=== PATIENT | male | born 1975 | race Caucasian/White ===

== ENCOUNTER 2017-01-03 23:22 | Observation (INO) | payer OTHER ==
[~2017-01-03] VITALS: Ht 188 cm; Wt 116.0 kg
[2017-01-03 23:24] VITALS: BP 144/88; PULSE 103; RESP 18; TEMP 99.5; O2SAT 95
[2017-01-04] MEDS ORDERED: SODIUM CHLORIDE 0.9% FLUSH 10 ML FLUSH IVF PRN
[2017-01-04] MEDS ORDERED: ASPIRIN 81 MG CHEW TAB PO ONE
[2017-01-04] MEDS ORDERED: SODIUM CHLORID 0.9% 500 ML INJ 500 ML IV ONE
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
[2017-01-04 00:24] LABS: AUTOMATED NEUTROPHIL # 6.5 TH/MM3 (1.8-7.7); BASOPHIL # 0.1 TH/MM3 (0-0.2); BASOPHIL % 0.6 % (0.0-2.0); EOSINOPHIL # 0.3 TH/MM3 (0-0.4); EOSINOPHIL % 2.2 % (0.0-4.0); HEMATOCRIT 41.1 % (39.0-51.0); HEMO FLAGS DIFF FINAL; LYMPH % 31.6 % (9.0-44.0); LYMPHOCYTE # 3.7 TH/MM3 (1.0-4.8); MEAN CELL VOLUME 95.9 FL (80.0-100.0); MEAN CORPUSCULAR HEMOGLOBIN 33.9 PG (27.0-34.0); MEAN CORPUSCULAR HGB CONC 35.4 % (32.0-36.0); MONO % 9.9 % (0.0-8.0); NEUT % 55.7 % (16.0-70.0); PLATELET COUNT 274 TH/MM3 (150-450); RED BLOOD COUNT 4.28 MIL/MM3 (4.50-5.90); RED CELL DISTRIBUTION WIDTH 12.7 % (11.6-17.2); WHITE BLOOD COUNT 11.8 TH/MM3 (4.0-11.0)
--- NOTE | 2017-01-04 00:26 | RADRPT ---
EXAM DATE/TIME: 01/04/2017 00:10 [facility] COMPARISON: No previous studies available for comparison. INDICATIONS : Chest pain. Patient states pain started in center of chest and radiated up the right side of his neck . MEDICAL HISTORY : None. SURGICAL HISTORY : None. ENCOUNTER: Initial ACUITY: 1 day PAIN SCORE: 10/10 LOCATION: Bilateral chest FINDINGS: Portable AP view of the chest demonstrates a normal-sized cardiac silhouette. No effusion, consolidat ion, or pneumothorax is visualized. The bones and soft tissues demonstrate no acute abnormality. EKG lines overlie the patient. CONCLUSION: No acute cardiopulmonary abnormality is identified. Hector Smith MD on January 04, 2017 at 0:24 Board Certified Radiologist. This report was verified electronically.
[2017-01-04 00:35] LABS: APTT (PATIENT) 26.8 SEC (24.3-30.1); PROTHROMBIN TIME - PATIENT 10.8 SEC (9.8-11.6)
[2017-01-04 00:47] LABS: ALT (GPT) 36 U/L (12-78); ANION GAP 9 MEQ/L (5-15); AST (GOT) 20 U/L (15-37); BICARBONATE 25.9 MEQ/L (21.0-32.0); BLOOD UREA NITROGEN 8 MG/DL (7-18); CHLORIDE 105 MEQ/L (98-107); GLOMERULAR FILTRATION RATE 81 ML/MIN (>89); POTASSIUM 3.3 MEQ/L (3.5-5.1); SODIUM (NA) 140 MEQ/L (136-145)
[2017-01-04 00:51] LABS: ALKALINE PHOSPHATASE 79 U/L (45-117); CREATINE KINASE 266 U/L (39-308); TOTAL BILIRUBIN ADULT 0.6 MG/DL (0.2-1.0)
[2017-01-04 00:53] VITALS: BP 144/100; PULSE 92; RESP 17; O2SAT 95
[2017-01-04 00:54] VITALS: BP_SYST 130; BP_SYST 144; BP_DIAS 100; BP_DIAS 81
[2017-01-04 01:03] LABS: CKMB 1.7 NG/ML (0.5-3.6)
[2017-01-04] MEDS ORDERED: SODIUM CHLORIDE 0.9% FLUSH 10 ML FLUSH IV FLUSH PRN (01:30)
[2017-01-04] MEDS ORDERED: NITROGLYCERIN 0.4 MG SL 25 TABS/BTL SL PRN (01:30)
[2017-01-04] MEDS ORDERED: POTASSIUM CHLORIDE 20 MEQ CONTROLLED RELEASE TAB PO ONE (01:30)
[2017-01-04] MEDS ORDERED: ACETAMINOPHEN/HYDROcodone 325 MG/7.5 MG TAB PO PRN (01:30)
[2017-01-04] MEDS ORDERED: ONDANSETRON HCL 4 MG/2 ML VIAL IV PRN (01:30)
[2017-01-04] MEDS ORDERED: ACETAMINOPHEN 500 MG CPLT PO PRN (01:30)
[2017-01-04] MEDS ORDERED: MORPHINE SULFATE 4 MG/ML INJ IV PRN (01:30)
[2017-01-04 03:00] VITALS: PULSE 82
[2017-01-04 03:20] VITALS: BP 123/64; PULSE 86; RESP 19; TEMP 96.2; O2SAT 96
[2017-01-04 03:34] LABS: CREATINE KINASE 231 U/L (39-308)
[2017-01-04 03:47] LABS: CKMB 1.5 NG/ML (0.5-3.6)
[2017-01-04 05:39] LABS: CREATINE KINASE 243 U/L (39-308)
[2017-01-04] MEDS ORDERED: SODIUM CHLORIDE 0.9% FLUSH 10 ML FLUSH IV FLUSH SCH (09:00)
[2017-01-04] MEDS ORDERED: ASPIRIN 325 MG TAB PO SCH (09:00)
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
--- NOTE | 2017-01-04 09:34 | TR ---
Date Performed: 01/04/2017 Time Performed: 08:57:00 DOCTOR: Yazmin Cruz DRUG LIST: CLINICAL HISTORY: REASON FOR TEST: REASON FOR ENDING: OBSERVATION: CONCLUSION: JIMI PROTOCOL. NO CP. TEST STOPPED AFTER REACHING GOAL HR SECONDARY TO SOB AND LEG FATIGUE. OCCASIONAL PVCS.Maximum HO=682 % Max HR Achieved=88.0% Maximum WM=303/78 Total Exercise Time =5:01 COMMENTS:
[2017-01-04] MEDS ORDERED: REGADENOSON INJ 0.4 MG/5 ML SYR ONE (11:09)
--- NOTE | 2017-01-04 12:12 | RADRPT ---
EXAM DATE/TIME: 01/04/2017 10:37 [facility] COMPARISON: No previous studies available for comparison. INDICATIONS : Midsternal chest pain radiating to the right neck. Angina. DOSE: 35.0 mCi Tc99m Myoview at stress. 11.0 mCi Tc99m Myoview at rest. 0.4 mg Lexiscan STRESS SYMPTOMS: Shortness of breath with dizziness. EJECTION FRACTION: 56% MEDICAL HISTORY : Seizures. Smoker. SURGICAL HISTORY : Cholecystectomy. Right knee surgery. ENCOUNTER: Initial ACUITY: 1 day PAIN SCALE: 10/10 LOCATION: Midsternal chest TECHNIQUE: The patient underwent pharmacologic stress with infusion of prescribed dose. Continuous ECG tracing was monitored during stress. Gated SPECT imaging was performed after stress and conventional SPECT i maging was performed at rest. The examination was performed on a SPECT/CT scanner, both attenuation and non-corrected datasets were reviewed. FINDINGS: DISTRIBUTION: The maximum perfused segment at stress is equally distributed between the septal and lateral jerez. T here appears to be severe contamination along the inferior wall due to regional bowel activity on the stress sequence. PERFUSION STUDY: The pattern of perfusion at stress is within normal limits. GATED STUDY: There is intact wall motion and thickening without hypokinetic or dyskinetic segments. CONCLUSION: 1. No scintigraphic findings of infarct or ischemia. 2. Adequate wall motion throughout with estimated ejection fraction of 56%. RISK CATEGORY: Low (<1% Annual Mortality Rate) Ankush Coleman MD on January 04, 2017 at 12:05 Board Certified Radiologist. This report was verified electronically.
--- NOTE | 2017-01-04 12:20 | HHI.DCPOC ---
Discharge Care Plan Diagnosis: (1) Chest pain (2) Tobacco abuse Goals to Promote Your Health * To prevent worsening of your condition and complications * To maintain your health at the optimal level Directions to Meet Your Goals Take your medications as prescribed Follow your dietary instruction Follow activity as directed Keep your appointments as scheduled Take your immunizations and boosters as scheduled If your symptoms worsen call your PCP, if no PCP go to Urgent Care Center or Emergency Room Smoking is Dangerous to Your Health. Avoid second hand smoke Call the 24-hour hour crisis hotline for domestic abuse at Sharan Flood Jan 04, 2017 12:20
[2017-01-04 12:35] VITALS: PULSE 73
[2017-01-04 12:38] VITALS: BP 114/61; PULSE 70; RESP 14; TEMP 98.7; O2SAT 96
--- NOTE | 2017-01-04 17:29 | TR ---
Date Performed: 01/04/2017 Time Performed: 11:09:28 DOCTOR: Yazmin Cruz DRUG LIST: CLINICAL HISTORY: ANGINA REASON FOR TEST: Angina REASON FOR ENDING: OBSERVATION: CONCLUSION: COMMENTS: Lexiscan stress test was performed under standard four minute protocol. Radionuclide was injected one minute prior to ending the test. No electrocardiographic abormalities were present t o suggest ischemia. Nuclear imaging and interpretation are pending.
--- NOTE | 2017-01-04 17:32 | EKG ---
Date Performed: 01/04/2017 Time Performed: 03:11:20 PTAGE: 41 years EKG: Sinus rhythm WITH FIRST DEGREE AV BLOCK ABNORMAL ECG PREVIOUS TRACING : 01/03/2017 23.44 Since previous tracing, no significant change noted DOCTOR: Yazmin Cruz Interpretating Date/Time 01/04/2017 17:30:42
--- NOTE | 2017-01-04 17:32 | EKG ---
Date Performed: 01/04/2017 Time Performed: 05:10:30 PTAGE: 41 years EKG: Sinus rhythm WITH MARKED SINUS ARRHYTHMIA WITH FIRST DEGREE AV BLOCK ABNORMAL ECG Since PREVIOUS TRACING , no significant change noted PREVIOUS TRACIN01/04/2017 03.11 DOCTOR: Yazmin Cruz Interpretating Date/Time 01/04/2017 17:30:12
--- NOTE | 2017-01-04 17:33 | EKG ---
Date Performed: 01/03/2017 Time Performed: 23:44:26 PTAGE: 41 years EKG: Sinus rhythm ARM LEADS REVERSED ATYPICAL ECG NO PREVIOUS TRACING DOCTOR: Yazmin Cruz Interpretating Date/Time 01/04/2017 17:30:50
== END 2017-01-04 15:42 | disposition home or self-care (01) ==
LOC: NEPE 23:22 → NEDA 01-04 01:27 → NEPFCDU 01-04 02:26
DX: R07.9 Chest pain, unspecified (principal); R06.02 Shortness of breath; R11.0 Nausea; R61 Generalized hyperhidrosis; R07.2 Precordial pain; M54.2 Cervicalgia; R06.09 Other forms of dyspnea; R42 Dizziness and giddiness; I49.8 Other specified cardiac arrhythmias; R94.31 Abnormal electrocardiogram [ECG] [EKG]; I44.0 Atrioventricular block, first degree; I20.9 Angina pectoris, unspecified; F17.200 Nicotine dependence, unspecified, uncomplicated
CPT/HCPCS: 71010; 78452; 80053; 82550; 82552; 83690; 83735; 84484; 85025; 85610; 85730; 93005; 93017; 96360; 99285; A9502; G0378; J2785; J7040